=== PATIENT | female | born 1990 | race Caucasian/White ===

== ENCOUNTER 2016-03-04 01:10 | Emergency (ER) | payer MEDICAID ==
--- NOTE | 2016-03-04 02:00 | Emergency Department Report ---
ED General Adult HPI - General Chief complaint: Dyspnea/Respdistress Stated complaint: DANNIELLE/PE Time Seen by Provider: 03/04/16 01:48 Source: patient, EMS (ems notes not available at time of chart dictation) Mode of arrival: Stretcher Limitations: No Limitations - History of Present Illness Initial comments: This is a 25-year-old female, previously unknown to me. She is 3, para 3. History of 3. Recently delivered on February 02. 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 She reports that she was on anticoagulation for 3 months and so the recommended 6 months because she got again. The patient presents to the ER complaining of substernal chest pain and bilateral rib pain, which is sharp, will correct from sleep, and associated with shortness of breath. There is no leg pain. There is no leg swelling. Patient reports her symptoms today are similar to prior episodes of pulmonary embolus. There is no hematemesis, there is no bright red blood per rectum. No irritative or obstructive urinary symptoms, patient has had mild vaginal bleeding since her recent section. -: Sudden Location: chest Quality: aching Consistency: constant Improves with: none Worsens with: cold therapy Associated Symptoms: chest pain, shortness of breath - Related Data Previous Rx's Medication Instructions Recorded Last Taken Type Ferrous Sulfate [Feosol 325 MG tab] 325 mg PO BID #60 tablet 02/03/16 03/03/16 Rx Vit W-Ca,Fe,FA(<1 mg) 1 each PO DAILY #30 tablet 02/03/16 03/03/16 Rx [ Vitamins] Allergies Allergy/AdvReac Type Severity Reaction Status Date / Time sulfamethoxazole Allergy Unknown Hives Verified 03/04/15 17:21 [From Bactrim] trimethoprim [From Bactrim] Allergy Unknown Hives Verified 03/04/15 17:21 ED Review of Systems ROS: Stated complaint: DANNIELLE/PE Other details as noted in HPI Constitutional: denies: fever Eyes: denies: eye discharge ENT: denies: hearing loss Respiratory: see HPI Cardiovascular: chest pain Gastrointestinal: denies: nausea Genitourinary: abnormal menses Musculoskeletal: as per HPI Skin: denies: lesions Neurological: denies: headache ED Past Medical Hx - Past Medical History Previous Medical History?: Yes Hx Hypertension: No Hx Congestive Heart Failure: No Hx Diabetes: No Hx Deep Vein Thrombosis: No Hx Renal Disease: No Hx Sickle Cell Disease: No Hx Seizures: No Hx Asthma: No Hx COPD: No Hx HIV: No - Surgical History Past Surgical History?: Yes Additional Surgical History: c-sectionx3 - Social History Smoking Status: Never Smoker Substance Use Type: None - Medications Home Medications: Home Medications Medication Instructions Recorded Confirmed Last Taken Type Ferrous Sulfate [Feosol 325 MG tab] 325 mg PO BID #60 tablet 02/03/16 03/04/16 03/03/16 Rx Vit W-Ca,Fe,FA(<1 mg) 1 each PO DAILY #30 tablet 02/03/16 03/04/16 Rx [ Vitamins] ED Physical Exam - General Limitations: No Limitations General appearance: alert, in no apparent distress - Head Head exam: Present: atraumatic, normocephalic - Eye Eye exam: Present: normal appearance, EOMI. Absent: nystagmus - ENT ENT exam: Present: normal exam, normal orophraynx, mucous membranes moist - Neck Neck exam: Present: normal inspection, full ROM. Absent: tenderness, meningismus - Respiratory Respiratory exam: Present: normal lung sounds bilaterally. Absent: respiratory distress, wheezes, rales, rhonchi, stridor, chest wall tenderness - Cardiovascular Cardiovascular Exam: Present: regular rate, normal rhythm, normal heart sounds. Absent: bradycardia, tachycardia, irregular rhythm, systolic murmur, diastolic murmur, rubs, gallop - GI/Abdominal GI/Abdominal exam: Present: soft, normal bowel sounds. Absent: distended, tenderness, guarding, rebound, rigid, pulsatile mass - Extremities Exam Extremities exam: Present: normal inspection, full ROM, normal capillary refill. Absent: tenderness, pedal edema, joint swelling, calf tenderness - Back Exam Back exam: Present: normal inspection, full ROM. Absent: tenderness, CVA tenderness (R), CVA tenderness (L), muscle spasm, paraspinal tenderness, vertebral tenderness - Neurological Exam Neurological exam: Present: alert, oriented X3, other (Extraocular movements intact. Tongue midline. No facial droop. Facial sensation intact to light touch in the V1, V2, V3 distribution bilaterally. 5 and 5 strength in 4 extremities.. Sensation is intact to light touch in 4 extremities.). Absent: motor sensory deficit - Psychiatric Psychiatric exam: Present: anxious - Skin Skin exam: Present: warm, dry, intact, normal color. Absent: rash ED Course Vital Signs 03/04/16 03/04/16 03/04/16 01:22 02:00 04:27 Temperature 97.6 F Pulse Rate 73 Respiratory 18 18 Rate Blood Pressure 111/59 [Left] O2 Sat by Pulse 100 Oximetry - Reevaluation(s) Reevaluation #1: 03/04/16 01:59 Differential diagnosis: Acute coronary syndrome, pneumonia, congestive heart failure, pulmonary embolus Assessment and plan: 25-year-old female with history of pulmonary embolus with symptoms that are clinically similar to her prior event. She is afebrile. Her vital signs. No lower extremity pain or swelling. Somewhat anxious. CT scan of the chest, EKG, laboratory studies pending. Reevaluation #2: 03/04/16 05:43 CT scan of the chest negative. Vital signs and laboratory studies not consistent with preeclampsia. The patient feels improved after pain medication. Repeat troponin pending. ED Medical Decision Making - Lab Data Result diagrams: 03/04/16 01:53 03/04/16 01:53 Vital Signs 03/04/16 01:22 Temperature 97.6 F - EKG Data 03/04/16 02:35 normal sinus, 64 bpm, normal intervals, normal axis, consistent with STEMI - Radiology Data Radiology results: report reviewed, image reviewed interpreted by me: X-ray chest negative CT scan of the chest negative for pulmonary embolus Critical care attestation.: If time is entered above; I have spent that time in minutes in the direct care of this critically ill patient, excluding procedure time. ED Disposition Clinical Impression: Chest pain Disposition: DISCHARGED TO HOME OR SELFCARE Is pt being admited?: No Does the pt Need Aspirin: No Condition: Stable Instructions: Chest Pain (ED) Additional Instructions: Laboratory studies were unremarkable, EKG was unremarkable, no evidence of pulmonary embolus on the CT scan of the chest. Rest and avoid heavy lifting. Do not breast feed for the next 36 hours. Follow-up with her primary care doctor or transcription typist within the next 3-[address] Monroe and Glenda are local search engine marketing specialist. Return to the ER right away with new pain, worsened pain, migration of pain, fevers or chills, nausea or vomiting, inability to tolerate liquid feeds. Referrals: PRIMARY CARE, [Primary Care Provider] - 3-5 Days DIOR MONROE MD [Staff Physician] - 3-5 Days SHELLI AJ MD [Staff Physician] - 3-5 Days
[2016-03-04 02:30] LABS: Blood Urea Nitrogen 11 mg/dL (7-17); Carbon Dioxide 23 mmol/L (22-30); Chloride 101.8 mmol/L (98-107); Glucose 103 mg/dL (65-100); Potassium 4.3 mmol/L (3.6-5.0); Sodium 138 mmol/L (137-145)
[2016-03-04 02:32] LABS: Anion Gap 18 mmol/L
[2016-03-04 02:34] LABS: Alanine Aminotransferase 10 units/L (7-56); Albumin 4.1 g/dL (3.9-5); Albumin/Globulin Ratio 1.6 %; Alkaline Phosphatase 105 units/L (35-129); Bilirubin,Total 0.2 mg/dL (0.1-1.2); Total Protein 6.6 g/dL (6.3-8.2)
[2016-03-04 02:36] LABS: Bilirubin,Direct < 0.2 mg/dL (0-0.2)
[2016-03-04] MEDS ORDERED: NACL 0.9% 1000 ML 1,000 ML IV ONE (02:36)
[2016-03-04] MEDS ORDERED: TORADOL IV ONE (02:36)
[2016-03-04 02:46] LABS: Basophils % (Auto) 0.7 % (0.0-1.8); Hematocrit 38.1 % (30.3-42.9); Hemoglobin 12.2 gm/dl (10.1-14.3); Mean Corpuscular HGB Conc 32 % (30-34); Mean Corpuscular Hemoglobin 27 pg (28-32); Mean Corpuscular Volume 84 fl (79-97); Platelet Count 185 K/mm3 (140-440); Red Blood Count 4.52 M/mm3 (3.65-5.03); Red Cell Distribution Width 17.9 % (13.2-15.2); White Blood Count 8.3 K/mm3 (4.5-11.0)
[2016-03-04 02:51] LABS: Bilirubin,Urine NEG (Negative); Blood,Urine MOD (Negative); Ketones,Urine NEG (Negative); Leukocyte Esterase,Urine TR (Negative); Mucus,Urine FEW /HPF; Nitrite,Urine NEG (Negative); Protein,Urine <15 mg/dL mg/dL (Negative); Urobilinogen,Urine < 2.0 mg/dL (<2.0)
[2016-03-04] MEDS ORDERED: NACL ONE (03:22)
--- NOTE | 2016-03-04 04:57 | Cat Scan Report ---
FINAL REPORT PROCEDURE: CT ANGIO CHEST TECHNIQUE: Computerized axial tomographic angiography of the chest and pulmonary arteries was performed after the IV injection of iodinated nonionic contrast. The image data was postprocessed using maximum intensity projection (MIP) and 2-dimensional multiplanar reformatted (MPR) techniques. The examination is specifically tailored to the evaluation of the pulmonary arteries per clinical request. HISTORY: Shortness of breath. History of pulmonary embolus. Attention for pulmonary embolus. Short of breath 786.09, chest pain 786.50 COMPARISON: No prior studies are available for comparison. FINDINGS: Heart and pericardium: Normal. Thoracic aorta: Normal. Pulmonary vasculature: Normal. No pulmonary emboli. Lymph nodes: No enlarged thoracic lymph nodes. Lungs: Normal. Pleural space: No effusion, thickening, or pneumothorax. Musculoskeletal structures: No significant abnormality. Upper abdominal structures: No significant abnormality. Lungs: There is minimal atelectasis in the posterior mid and lower lungs. The lungs are clear otherwise.. Pleural space: No effusion, thickening, or pneumothorax. Musculoskeletal structures: No significant abnormality. Upper abdominal structures: Heterogenous spleen is likely due to contrast flux on this CTA exam. IMPRESSION: 1. There is no CT evidence of pulmonary embolus. 2. There is no CT evidence of thoracic aortic dissection. 3. Mild dependent atelectasis in the posterior mid and lower lungs noted.
[2016-03-04 07:21] VITALS: BP 114/74
--- NOTE | 2016-03-04 08:13 | XRay Report ---
AP CHEST :03/04/16 01:10:00 CLINICAL: Difficulty breathing. COMPARISON:None. FINDINGS: Normal heart and pulmonary vasculature. The lungs are normally expanded and clear. The bones and soft tissues are normal. IMPRESSION: Normal chest.
== END 2016-03-04 07:20 | disposition home or self-care (01) ==
LOC: ED 01:10
DX: R07.2 Precordial pain (principal); Z88.2 Allergy status to sulfonamides; Z88.8 Allergy status to other drugs, medicaments and biological substances
CPT/HCPCS: 36415; 71010; 71275; 80048; 80074; 81001; 81025; 83880; 84484; 85025; 85379; 93005; 93010; 96361; 96374; 99285; J1885; J7030; Q9967

== ENCOUNTER 2016-11-16 16:12 | Emergency (ER) | payer MEDICAID ==
--- NOTE | 2016-11-16 22:50 | Emergency Department Report ---
ED Abdominal Pain HPI - General Chief Complaint: Pain General Stated Complaint: RIB PAIN Time Seen by Provider: 11/16/16 22:47 Source: patient Mode of arrival: Ambulatory Limitations: No Limitations - History of Present Illness MD Complaint: abdominal pain, other (lower rib region) - Related Data Previous Rx's Medication Instructions Recorded Last Taken Type Ferrous Sulfate [Feosol 325 MG tab] 325 mg PO BID #60 tablet 02/03/16 03/03/16 Rx Vit W-Ca,Fe,FA(<1 mg) 1 each PO DAILY #30 tablet 02/03/16 03/03/16 Rx [ Vitamins] Allergies Allergy/AdvReac Type Severity Reaction Status Date / Time sulfamethoxazole Allergy Unknown Hives Verified 03/04/15 17:21 [From Bactrim] trimethoprim [From Bactrim] Allergy Unknown Hives Verified 03/04/15 17:21 ED Review of Systems ROS: Stated complaint: RIB PAIN Other details as noted in HPI ED Past Medical Hx - Past Medical History Hx Hypertension: No Hx Congestive Heart Failure: No Hx Diabetes: No Hx Deep Vein Thrombosis: No Hx Renal Disease: No Hx Sickle Cell Disease: No Hx Seizures: No Hx Asthma: No Hx COPD: No Hx HIV: No - Surgical History Additional Surgical History: c-sectionx3 - Social History Smoking Status: Never Smoker Substance Use Type: None - Medications Home Medications: Home Medications Medication Instructions Recorded Confirmed Last Taken Type Ferrous Sulfate [Feosol 325 MG tab] 325 mg PO BID #60 tablet 02/03/16 03/04/16 03/03/16 Rx Vit W-Ca,Fe,FA(<1 mg) 1 each PO DAILY #30 tablet 02/03/16 03/04/16 Rx [ Vitamins] ED Physical Exam - General Limitations: No Limitations ED Course Vital Signs 11/16/16 17:50 Temperature 98.5 F Pulse Rate 76 Respiratory 16 Rate Blood Pressure 109/58 O2 Sat by Pulse 96 Oximetry Critical care attestation.: If time is entered above; I have spent that time in minutes in the direct care of this critically ill patient, excluding procedure time. ED Disposition Condition: Stable Referrals: PRIMARY CARE, [Primary Care Provider] - 3-5 Days
[2016-11-16] MEDS ORDERED: TORADOL IM ONE (22:52)
--- NOTE | 2016-11-16 22:57 | Emergency Department Report ---
ED General Adult HPI - General Chief complaint: Pain General Stated complaint: RIB PAIN Time Seen by Provider: 11/16/16 22:47 Source: patient Mode of arrival: Ambulatory Limitations: No Limitations - History of Present Illness Initial comments: This is a 25-year-old female nontoxic, well nourished in appearance, no acute signs of distress presents to the ED complaining of upper abdominal pain and lower rib pain region bilaterally 1 year. Patient stated she had a vomiting episode one time last night with food content. Patient denies any nausea, vomiting currently. Patient described pain as aching with level of 8 out of 10. Patient stated this has been going on intermittently for the past year ever since she gave . Patient also stated that she was here in February with rule out of pulmonary embolism which was negative results. The status of the same symptoms that she is having. Patient stated she has been taking tramadol with relief of symptoms and states she is not having anymore tramadol and it has been taking regular Tylenol with no relief. Patient denies any chest pain, shortness of breath, hemoptysis, calf pain, calf tenderness, headache, blurry vision, stiff neck, numbness, tingling, fever or chills. Denies long car rides, recent hospital stays, or recent travels. Patient denies taking oral contraceptives. Patient states allergies to Bactrim. Patient denies past medical history. MD Complaint: abdominal pain -: Gradual, year(s) Location: abdomen Radiation: non-radiation Severity scale (0 -10): 8 Quality: aching Consistency: intermittent Improves with: none Worsens with: none Associated Symptoms: denies other symptoms. denies: confusion, chest pain, cough, diaphoresis, fever/chills, headaches, loss of appetite, malaise, nausea/ vomiting, rash, seizure, shortness of breath, syncope, weakness Treatments Prior to Arrival: none - Related Data Previous Rx's Medication Instructions Recorded Last Taken Type Ferrous Sulfate [Feosol 325 MG tab] 325 mg PO BID #60 tablet 02/03/16 03/03/16 Rx Vit W-Ca,Fe,FA(<1 mg) 1 each PO DAILY #30 tablet 02/03/16 03/03/16 Rx [ Vitamins] traMADol [Ultram] 50 mg PO Q6HR PRN #15 tablet 10/02/17 Unknown Rx Nitrofurantoin Stoddard/M-Cryst 100 mg PO Q12HR #14 capsule 11/17/16 Unknown Rx [Macrobid CAP] Allergies Allergy/AdvReac Type Severity Reaction Status Date / Time sulfamethoxazole Allergy Unknown Hives Verified 03/04/15 17:21 [From Bactrim] trimethoprim [From Bactrim] Allergy Unknown Hives Verified 03/04/15 17:21 ED Review of Systems ROS: Stated complaint: RIB PAIN Other details as noted in HPI Constitutional: denies: chills, fever Eyes: denies: eye pain, eye discharge, vision change ENT: denies: ear pain, throat pain Respiratory: denies: cough, shortness of breath, wheezing Cardiovascular: denies: chest pain, palpitations Endocrine: no symptoms reported Gastrointestinal: abdominal pain. denies: nausea, diarrhea Genitourinary: denies: urgency, dysuria, discharge Musculoskeletal: denies: back pain, joint swelling, arthralgia Skin: denies: rash, lesions Neurological: denies: headache, weakness, paresthesias Psychiatric: denies: anxiety, depression Hematological/Lymphatic: denies: easy bleeding, easy bruising ED Past Medical Hx - Past Medical History Hx Hypertension: No Hx Congestive Heart Failure: No Hx Diabetes: No Hx Deep Vein Thrombosis: No Hx Renal Disease: No Hx Sickle Cell Disease: No Hx Seizures: No Hx Asthma: No Hx COPD: No Hx HIV: No - Surgical History Additional Surgical History: c-sectionx3 - Social History Smoking Status: Never Smoker Substance Use Type: None - Medications Home Medications: Home Medications Medication Instructions Recorded Confirmed Last Taken Type Ferrous Sulfate [Feosol 325 MG tab] 325 mg PO BID #60 tablet 02/03/16 03/04/16 03/03/16 Rx Vit W-Ca,Fe,FA(<1 mg) 1 each PO DAILY #30 tablet 02/03/16 03/04/16 Rx [ Vitamins] traMADol [Ultram] 50 mg PO Q6HR PRN #15 tablet 11/16/16 Unknown Rx Nitrofurantoin Stoddard/M-Cryst 100 mg PO Q12HR #14 capsule 11/17/16 Unknown Rx [Macrobid CAP] ED Physical Exam - General Limitations: No Limitations General appearance: alert, in no apparent distress - Head Head exam: Present: atraumatic, normocephalic, normal inspection - Eye Eye exam: Present: normal appearance, PERRL, EOMI. Absent: scleral icterus, conjunctival injection, nystagmus, periorbital swelling, periorbital tenderness Pupils: Present: normal accommodation - ENT ENT exam: Present: normal exam, normal orophraynx, mucous membranes moist, TM's normal bilaterally, normal external ear exam - Neck Neck exam: Present: normal inspection, full ROM. Absent: tenderness, meningismus, lymphadenopathy, thyromegaly - Respiratory Respiratory exam: Present: normal lung sounds bilaterally. Absent: respiratory distress, wheezes, rales, rhonchi, stridor, chest wall tenderness, accessory muscle use, decreased breath sounds, prolonged expiratory - Cardiovascular Cardiovascular Exam: Present: regular rate, normal rhythm, normal heart sounds. Absent: bradycardia, tachycardia, irregular rhythm, systolic murmur, diastolic murmur, rubs, gallop - GI/Abdominal GI/Abdominal exam: Present: soft, normal bowel sounds. Absent: distended, tenderness, guarding, rebound, rigid, diminished bowel sounds - Expanded GI/Abdominal Exam Expanded GI/Abdominal exam: Absent: psoas sign, obturator sign, heel tap sign, Benjamin's sign, Rovsing's sign, tenderness at [place]bur[place]'s Point, ascites - Rectal Rectal exam: Present: deferred - Extremities Exam Extremities exam: Present: normal inspection, full ROM, normal capillary refill. Absent: tenderness, pedal edema, joint swelling, calf tenderness - Back Exam Back exam: Present: normal inspection, full ROM. Absent: tenderness, CVA tenderness (R), CVA tenderness (L), muscle spasm, paraspinal tenderness, vertebral tenderness, rash noted - Neurological Exam Neurological exam: Present: alert, oriented X3, CN II-XII intact, normal gait, reflexes normal - Psychiatric Psychiatric exam: Present: normal affect, normal mood - Skin Skin exam: Present: warm, dry, intact, normal color. Absent: rash ED Course Vital Signs 11/16/16 17:50 Temperature 98.5 F Pulse Rate 76 Respiratory 16 Rate Blood Pressure 109/58 O2 Sat by Pulse 96 Oximetry - Reevaluation(s) Reevaluation #1: 11/16/16 22:57 Patient is speaking in full sentences with no signs of distress noted. - Consultations Consultation #1: 11/17/16 03:24 Dr. Day has been consulted about patient history, physical exam, and lab/ct findings and agrees to d/c with f/u. ED Medical Decision Making - Lab Data Result diagrams: 11/16/16 22:58 11/16/16 22:58 - Medical Decision Making This is a 25-year-old female that presents with upper abdominal pain and low rib region.. Patient stated she was here on February with similar symptoms to rule out PE because she had a history of PE and was negative. CBC, BMP, UA, lipase amylase have been obtained. Elevated lipase. Elevated d-dimer. CTA and CT abdomen/pelvis has been obtained with contrast with negative findings of any abnormalities. Patient stated she feels much better after medical treatment of Toradol and normal saline. Patient denies any pain. Patient has a history of elevated d-dimer of 11,000 but today it is currently 500. Patient was instructed to follow-up with a primary care doctor in 3-5 days or if symptoms worsen and continue return to emergency room as soon as possible possible. At time time of discharge, the patient does not seem toxic or ill in appearance. No acute signs of distress noted. Patient agrees to discharge treatment plan of care. No further questions noted by the patient. UA indicates patient having UTI. Critical care attestation.: If time is entered above; I have spent that time in minutes in the direct care of this critically ill patient, excluding procedure time. ED Disposition Clinical Impression: Abdominal pain Qualifiers: Abdominal location: unspecified location Qualified Code(s): R10.9 - Unspecified abdominal pain UTI (urinary tract infection) Qualifiers: Urinary tract infection type: site unspecified Hematuria presence: without hematuria Qualified Code(s): N39.0 - Urinary tract infection, site not specified Disposition: DC-01 TO HOME OR SELFCARE Is pt being admited?: No Does the pt Need Aspirin: No Condition: Stable Instructions: Tramadol (By mouth), Acute Abdominal Pain (ED), Urinary Tract Infection in Women (ED) Additional Instructions: Follow-up with a primary care doctor in 3-5 days or if symptoms worsen and continue return to emergency room as soon as possible possible. Prescriptions: Nitrofurantoin Stoddard/M-Cryst [Macrobid CAP] 100 mg PO Q12HR #14 capsule traMADol [Ultram] 50 mg PO Q6HR PRN #15 tablet PRN Reason: Pain Referrals: PRIMARY CAREMD [Primary Care Provider] - 3-5 Days JERO PETERSON MD [Staff Physician] - 3-5 Days [facility] [Outside] - 3-5 Days [facility] [place] [Outside] - 3-5 Days Forms: Work/School Release Form(ED)
[2016-11-16 23:23] LABS: Basophils % (Auto) 0.3 % (0.0-1.8); Eosinophils % (Auto) 1.6 % (0.0-4.3); Hematocrit 40.7 % (30.3-42.9); Hemoglobin 13.9 gm/dl (10.1-14.3); Mean Corpuscular HGB Conc 34 % (30-34); Mean Corpuscular Hemoglobin 31 pg (28-32); Mean Corpuscular Volume 92 fl (79-97); Platelet Count 255 K/mm3 (140-440); Red Blood Count 4.43 M/mm3 (3.65-5.03); White Blood Count 8.4 K/mm3 (4.5-11.0)
[2016-11-16 23:44] LABS: Amylase 122 units/L (27-131); Anion Gap 18 mmol/L; BUN/Creatinine Ratio 20; Blood Urea Nitrogen 12 mg/dL (7-17); Calcium 9.4 mg/dL (8.4-10.2); Carbon Dioxide 26 mmol/L (22-30); Chloride 99.4 mmol/L (98-107); Glucose 83 mg/dL (65-100); Lipase 218 units/L (13-60); Potassium 3.6 mmol/L (3.6-5.0); Sodium 140 mmol/L (137-145)
[2016-11-16] MEDS ORDERED: NACL 0.9% 1000 ML 1,000 ML IV ONE (23:50)
[2016-11-17 00:34] LABS: Albumin 4.4 g/dL (3.9-5); Albumin/Globulin Ratio 1.3 %; Bilirubin,Direct 0.2 mg/dL (0-0.2); Bilirubin,Indirect 0.5 mg/dL; Bilirubin,Total 0.7 mg/dL (0.1-1.2); Total Protein 7.9 g/dL (6.3-8.2)
[2016-11-17] MEDS ORDERED: NACL ONE (00:39)
[2016-11-17 00:58] LABS: Bacteria,Urine 2+ /HPF (Negative); Bilirubin,Urine NEG (Negative); Blood,Urine SM (Negative); Ketones,Urine TR mg/dL (Negative); Leukocyte Esterase,Urine TR (Negative); Mucus,Urine 2+ /HPF; Nitrite,Urine NEG (Negative)
--- NOTE | 2016-11-17 02:29 | Cat Scan Report ---
FINAL REPORT PROCEDURE: CT ANGIO CHEST TECHNIQUE: Computerized axial tomographic angiography of the chest and pulmonary arteries was performed after the IV injection of iodinated nonionic contrast. The image data was postprocessed using maximum intensity projection (MIP) and 2-dimensional multiplanar reformatted (MPR) techniques. The examination is specifically tailored to the evaluation of the pulmonary arteries per clinical request. HISTORY: Short of breath 786.09, chest pain 786.50, elevated d-dimer COMPARISON: No prior studies are available for comparison. FINDINGS: Heart and pericardium: Normal. Thoracic aorta: Normal. Pulmonary vasculature: Normal. No pulmonary emboli. Lymph nodes: No enlarged thoracic lymph nodes. Lungs: Lungs are clear and expanded.. Pleural space: No effusion, thickening, or pneumothorax. Musculoskeletal structures: No significant abnormality. Upper abdominal structures: No significant abnormality. IMPRESSION: There is no pulmonary embolism. There is no thoracic aortic aneurysm or dissection..
--- NOTE | 2016-11-17 02:32 | Cat Scan Report ---
FINAL REPORT PROCEDURE: CT ABDOMEN PELVIS W CON TECHNIQUE: Computerized axial tomography of the abdomen and pelvis was performed after the IV injection of iodinated nonionic contrast. HISTORY: abd pain ( MISCARRIAGE 2 WEEKS AGO) COMPARISON: No prior studies are available for comparison. FINDINGS: Visualized lower thorax: No significant abnormality. Liver: Normal size and attenuation. Spleen: Normal size and attenuation. Gallbladder and biliary system: Normal. Pancreas: Normal. Adrenals: Normal. Kidneys: Normal. GI tract: There is no bowel obstruction, colitis or enteritis. The appendix is normal.. Lymph nodes and mesentery: Normal. Vasculature: Normal. Bladder: Normal. Reproductive organs: Uterus is slightly prominent. There is no mass. Ovaries are unremarkable.. Peritoneum: There is no ascites, free air, abscess or adenopathy.. Musculoskeletal structures: No significant abnormality. Other: None. IMPRESSION: There is no acute intra-abdominal abnormality.
[2016-11-17 04:33] VITALS: BP 100/60
== END 2016-11-17 03:35 | disposition home or self-care (01) ==
LOC: ED 16:12
DX: N39.0 Urinary tract infection, site not specified (principal); R10.10 Upper abdominal pain, unspecified
CPT/HCPCS: 36415; 71275; 74177; 80048; 80074; 81001; 82150; 83690; 84703; 85025; 85379; 96360; 96372; 99284; J1885; J7030; Q9967

== ENCOUNTER 2017-08-09 19:20 | Emergency (ER) | payer OTHER ==
[2017-08-09 20:06] VITALS: BP 112/76
[2017-08-09 21:00] LABS: HCG Qualitative,Urine Negative (Negative)
[2017-08-09 21:03] LABS: Bacteria,Urine 2+ /HPF (Negative); Bilirubin,Urine NEG (Negative); Blood,Urine SM (Negative); Color,Urine Yellow (Yellow); Mucus,Urine FEW /HPF; Protein,Urine <15 mg/dL mg/dL (Negative); Urobilinogen,Urine < 2.0 mg/dL (<2.0)
--- NOTE | 2017-08-09 23:20 | Emergency Department Report ---
ED Female HPI - General Chief complaint: Urogenital-Female Stated complaint: VAG D.C WITH ODOR Time Seen by Provider: 08/09/17 22:44 Source: patient Mode of arrival: Ambulatory Limitations: No Limitations - History of Present Illness Initial comments: 26 y/o female comes in with abnormal vaginal discharge with change blood with vaginal odor. Patient reports is going on for a week. Patient reports that she is sexually active with one partner. She reports her last menstrual period was 07/25/2017. She is currently on Exelon control in her left arm. Patient is allergic to Bactrim. Currently takes no medications on a daily basis. MD Complaint: vaginal discharge, pelvic pain -: days(s) (7) Location: suprapubic Radiation: non-radiating Severity scale (0 -10): 0 Quality: aching Consistency: intermittent Improves with: none Worsens with: none Are you Now?: No Last Menstrual Period: 07/25/17 EDC: 05/01/18 Associated Symptoms: denies: nausea/vomiting, fever/chills, dysuria, hematuria - Related Data Sexually active: Yes (men 1 partner) Previous Rx's Medication Instructions Recorded Last Taken Type Ferrous Sulfate [Feosol 325 MG tab] 325 mg PO BID #60 tablet 02/03/16 03/03/16 Rx Vit Calc,Iron,Folic 1 each PO DAILY #30 tablet 02/03/16 03/03/16 Rx [ Vitamins] traMADol [Ultram] 50 mg PO Q6HR PRN #15 tablet 11/16/16 Unknown Rx Nitrofurantoin [place]/M-Cryst 100 mg PO Q12HR #14 capsule 11/17/16 Unknown Rx [Macrobid CAP] Ibuprofen [Motrin 600 MG tab] 600 mg PO Q8H PRN #15 tablet 08/10/17 Unknown Rx metroNIDAZOLE [Metronidazole] 500 mg PO TID 7 Days #21 tablet 08/10/17 Unknown Rx Allergies Allergy/AdvReac Type Severity Reaction Status Date / Time sulfamethoxazole Allergy Unknown Hives Verified 03/04/15 17:21 [From Bactrim] trimethoprim [From Bactrim] Allergy Unknown Hives Verified 03/04/15 17:21 ED Review of Systems ROS: Stated complaint: VAG D.C WITH ODOR Other details as noted in HPI Constitutional: denies: chills, fever Gastrointestinal: denies: abdominal pain, nausea, diarrhea Genitourinary: discharge (with odor), other (suprapubic) Musculoskeletal: denies: back pain, joint swelling, arthralgia Skin: denies: rash, lesions ED Past Medical Hx - Past Medical History Hx Hypertension: No Hx Congestive Heart Failure: No Hx Diabetes: No Hx Deep Vein Thrombosis: No Hx Renal Disease: No Hx Sickle Cell Disease: No Hx Seizures: No Hx Asthma: No Hx COPD: No Hx HIV: No - Surgical History Additional Surgical History: c-sectionx3 - Social History Smoking Status: Never Smoker Substance Use Type: None - Medications Home Medications: Home Medications Medication Instructions Recorded Confirmed Last Taken Type Ferrous Sulfate [Feosol 325 MG tab] 325 mg PO BID #60 tablet 02/03/16 03/04/16 03/03/16 Rx Vit Calc,Iron,Folic 1 each PO DAILY #30 tablet 02/03/16 03/04/16 Rx [ Vitamins] traMADol [Ultram] 50 mg PO Q6HR PRN #15 tablet 11/16/16 Unknown Rx Nitrofurantoin [place]/M-Cryst 100 mg PO Q12HR #14 capsule 11/17/16 Unknown Rx [Macrobid CAP] Ibuprofen [Motrin 600 MG tab] 600 mg PO Q8H PRN #15 tablet 08/10/17 Unknown Rx metroNIDAZOLE [Metronidazole] 500 mg PO TID 7 Days #21 tablet 08/10/17 Unknown Rx ED Physical Exam - General Limitations: No Limitations General appearance: alert, in no apparent distress - Head Head exam: Present: atraumatic, normocephalic - ENT ENT exam: Present: mucous membranes moist - Respiratory Respiratory exam: Present: normal lung sounds bilaterally. Absent: respiratory distress - Cardiovascular Cardiovascular Exam: Present: regular rate, normal rhythm. Absent: systolic murmur, diastolic murmur, rubs, gallop - GI/Abdominal GI/Abdominal exam: Present: soft, tenderness (mouth suprapubic). Absent: distended - External exam: Present: normal external exam Speculum exam: Present: vaginal discharge, cervical discharge, vaginal bleeding Bi-manual exam: Present: normal bi-manual exam. Absent: cervical motion tendernes, adnexal tenderness, adnexal mass, uterine enlargement, uterine tenderness - Extremities Exam Extremities exam: Present: normal inspection, full ROM - Back Exam Back exam: Present: full ROM - Neurological Exam Neurological exam: Present: alert, oriented X3 - Psychiatric Psychiatric exam: Present: normal affect, normal mood ED Course Vital Signs 08/09/17 20:05 Temperature 98.3 F Pulse Rate 81 Respiratory 18 Rate Blood Pressure 112/76 O2 Sat by Pulse 99 Oximetry ED Medical Decision Making - Medical Decision Making Patient has been evaluated by this provider fast track. Pelvic exam performed GC chlamydia and wet prep obtained sent to the lab. Discussed the patient we will treat her for gonorrhea and chlamydia and wait for the wet prep results to come back. Wet prep results greater than 20% clue cells. We'll treat patient for bacterial vaginosis. Critical care attestation.: If time is entered above; I have spent that time in minutes in the direct care of this critically ill patient, excluding procedure time. ED Disposition Clinical Impression: BV (bacterial vaginosis), Concern about STD in female without diagnosis Disposition: DC-01 TO HOME OR SELFCARE Is pt being admited?: No Does the pt Need Aspirin: No Condition: Stable Instructions: Bacterial Vaginosis (ED) Additional Instructions: Please take antibiotics as prescribed. Do not obtain alcohol beverages while taking this antibiotic. Ibuprofen for pain management as needed. Follow up with her primary care provider. You can bring your ID to medical records obtained her cultures in 3-7 days. Prescriptions: Ibuprofen [Motrin 600 MG tab] 600 mg PO Q8H PRN #15 tablet PRN Reason: Pain metroNIDAZOLE [Metronidazole] 500 mg PO TID 7 Days #21 tablet Referrals: PRIMARY CARE, [Primary Care Provider] - 3-5 Days Forms: STI Treatment and Prevention, Accompanied Note, Work/School Release Form (ED)
== END 2017-08-10 00:10 | disposition home or self-care (01) ==
LOC: ED 19:20
DX: N76.0 Acute vaginitis (principal); B96.89 Other specified bacterial agents as the cause of diseases classified elsewhere; Z88.2 Allergy status to sulfonamides
CPT/HCPCS: 81001; 81025; 87076; 87086; 87186; 87210; 87591

== ENCOUNTER 2020-02-19 10:44 | Emergency (ER) | payer OTHER ==
[2020-02-19 11:38] VITALS: BP 109/64
--- NOTE | 2020-02-19 11:41 | Emergency Department Report ---
ED Rash HPI - HPI Chief Complaint: Skin Rash Stated Complaint: ALERGIC REACTION Time Seen by Provider: 02/19/20 11:09 Duration: 1 Day Location: Lower Extremities Rash Symptoms: Yes Itching, No Facial Swelling, No Tongue/Oral Swelling, No Breathing Difficulties, No Choking Sensation, No Wheezing/Dyspnea, No Peeling, No Blistering, No Fever, No Lightheaded, No Malaise, No Myalgias Severity: mild Other History: This is a 29-year-old female nontoxic well in appearance with no signs of distress presents to the ED with complaint of itching and rash to bilateral legs. Stated it started today and taken benadryl with symptoms better. Patient denies any swelling, pus, or drainage. Denies any angioedema. Patient denies any other symptoms. Denies any fever, chills, headache, nausea, vomiting, chest pain or SOB. Allergies to Bactrim. ED Review of Systems ROS: Stated complaint: ALERGIC REACTION Other details as noted in HPI Comment: All other systems reviewed and negative Constitutional: denies: chills, fever Eyes: denies: eye pain, eye discharge, vision change ENT: denies: ear pain, throat pain Respiratory: denies: cough, shortness of breath, wheezing Cardiovascular: denies: chest pain, palpitations Endocrine: no symptoms reported Gastrointestinal: denies: abdominal pain, nausea, diarrhea Genitourinary: denies: urgency, dysuria, discharge Musculoskeletal: denies: back pain, joint swelling, arthralgia Skin: rash. denies: lesions Neurological: denies: headache, weakness, paresthesias Psychiatric: denies: anxiety, depression Hematological/Lymphatic: denies: easy bleeding, easy bruising ED Past Medical Hx - Past Medical History Previous Medical History?: No Hx Hypertension: No Hx Congestive Heart Failure: No Hx Diabetes: No Hx Deep Vein Thrombosis: No Hx Renal Disease: No Hx Sickle Cell Disease: No Hx Seizures: No Hx Asthma: No Hx COPD: No Hx HIV: No - Surgical History Past Surgical History?: Yes Additional Surgical History: c-sectionx3 - Social History Smoking Status: Never Smoker Substance Use Type: None - Medications Home Medications: Home Medications Medication Instructions Recorded Confirmed Last Taken Type Ferrous Sulfate [Feosol 325 MG tab] 325 mg PO BID #60 tablet 02/03/16 03/04/16 03/03/16 Rx Vit Calc,Iron,Folic 1 each PO DAILY #30 tablet 02/03/16 03/04/16 03/03/16 Rx [ Vitamins] traMADoL [Ultram] 50 mg PO Q6HR PRN #15 tablet 11/16/16 Unknown Rx Nitrofurantoin [place]/M-Cryst 100 mg PO Q12HR #14 capsule 11/17/16 Unknown Rx [Macrobid CAP] Ibuprofen [Motrin 600 MG tab] 600 mg PO Q8H PRN #15 tablet 08/10/17 Unknown Rx metroNIDAZOLE [Metronidazole] 500 mg PO TID 7 Days #21 tablet 08/10/17 Unknown Rx Prednisone [predniSONE 5 mg (6-Day 5 mg PO .TAPER #1 tab.ds.pk 02/19/20 Unknown Rx Pack, 21 Tabs)] diphenhydrAMINE [Benadryl CAP] 25 mg PO Q6HR PRN #12 capsule 02/19/20 Unknown Rx Rash Exam - Exam General: Vital signs noted. No distress. Alert and acting appropriately. HEENT: No Periorbital Edema, No Conjuctival Injection, No Chemosis, No Perioral Edema, No Tongue Edema, No Uvular Edema, No Compromised Airway, No Drooling Lungs: Yes Good Air Exchange (Normal Breath Sounds), No Wheezes, No Ronchi, No Stridor, No Cough, No Labored Respirations, No Retractions, No Use of Accessory Muscles, No Other Abnormal Lung Sounds Heart: Yes Regular, No Murmur Skin: Yes Other, No Urticarial Rash, No Maculopapular Rash, No Morbilliform rash, No Bulla(e), No Excoriations, No Weeping, No Tenderness, No Erythema, No Edema, No Encrustations Other: Positive: Abdomen Normal, Neurologic Normal, Musculoskeletal Normal ED Course Vital Signs 02/19/20 11:03 Temperature 97.9 F Pulse Rate 70 Respiratory 18 Rate Blood Pressure 109/64 O2 Sat by Pulse 98 Oximetry - Reevaluation(s) Reevaluation #1: 02/19/20 11:42 Patient is speaking in full sentences with no signs of distress noted. ED Medical Decision Making - Medical Decision Making VSS. Patient is stable and was examined by me. Patient does not have any angioedema. Patient will be discharged with Prednisone and Benadryl. Patient was instructed to Follow-up with a primary care doctor in 3-5 days or if symptoms worsen and continue return to emergency room as soon as possible. At time of discharge, the patient does not seem toxic or ill in appearance. No acute signs of distress noted. Patient agrees to discharge treatment plan of care. No further questions noted by the patient. Critical care attestation.: If time is entered above; I have spent that time in minutes in the direct care of this critically ill patient, excluding procedure time. ED Disposition Clinical Impression: Allergic reaction Disposition: DC- TO HOME OR SELFCARE Is pt being admited?: No Does the pt Need Aspirin: No Condition: Stable Additional Instructions: Follow-up with a primary care doctor in 3-5 days or if symptoms worsen and continue return to emergency room as soon as possible. Prescriptions: diphenhydrAMINE [Benadryl CAP] 25 mg PO Q6HR PRN #12 capsule PRN Reason: Itching Prednisone [predniSONE 5 mg (6-Day Pack, 21 Tabs)] 5 mg PO .TAPER #1 tab.ds.pk Referrals: PRIMARY MD JESS [Primary Care Provider] - 3-5 Days CRISTINO SALTER MD [Staff Physician] - 3-5 Days Time of Disposition: 11:45
== END 2020-02-19 12:38 | disposition home or self-care (01) ==
LOC: ED 10:44
DX: T78.40XA Allergy, unspecified, initial encounter (principal); Z88.2 Allergy status to sulfonamides; Z88.8 Allergy status to other drugs, medicaments and biological substances; Z98.890 Other specified postprocedural states; Z79.899 Other long term (current) drug therapy; X58.XXXA Exposure to other specified factors, initial encounter
CPT/HCPCS: 99282

== ENCOUNTER 2020-02-27 09:20 | Emergency (ER) | payer MEDICAID, OTHER ==
[2020-02-27 09:30] VITALS: BP 106/44
[2020-02-27 10:13] LABS: Bilirubin,Urine NEG (Negative); Blood,Urine MOD (Negative); Color,Urine Yellow (Yellow); Protein,Urine <15 mg/dL mg/dL (Negative); Urobilinogen,Urine < 2.0 mg/dL (<2.0)
--- NOTE | 2020-02-27 10:50 | Event Note ---
ED Screening Note Date of service: 02/27/20 Time: 10:48 ED Screening Note: 29-year-old female presents to the emergency room for 3-day history of dysuria. Patient denies any fever chills no nausea no vomiting mild lower left abdominal pain that sharp and intermittent and worse when she urinates. Patient states she started her menstrual period on 02/25/2020 she is 3 para 3. Has an allergy to Bactrim currently takes no medications. This initial assessment/diagnostic orders/clinical plan/treatment(s) is/are subject to change based on patients health status, clinical progression and re- assessment by fellow clinical providers in the ED. Further treatment and workup at subsequent clinical providers discretion. Patient/guardian urged not to elope from the ED as their condition may be serious if not clinically assessed and managed. Initial orders include:
--- NOTE | 2020-02-27 11:27 | Emergency Department Report ---
ED Female HPI - General Chief complaint: Abdominal Pain Stated complaint: BURNING URINE Source: patient Mode of arrival: Ambulatory Limitations: No Limitations - History of Present Illness Initial comments: 29-year-old female presents to the emergency room for 3-day history of dysuria. Patient denies any fever chills no nausea no vomiting mild lower left abdominal pain that sharp and intermittent and worse when she urinates. Patient states she started her menstrual period on 02/25/2020 she is 3 para 3. Has an allergy to Bactrim currently takes no medications. Onset/Timin -: days(s) Location: suprapubic Severity scale (0 -10): 5 Quality: burning Consistency: constant Improves with: none Worsens with: urination Are you Now?: No Last Menstrual Period: 02/25/20 EDC: 12/01/20 Associated Symptoms: vaginal bleeding, abdominal pain, dysuria. denies: nausea/vomiting, fever/chills - Related Data Sexually active: Yes : 3 Para: 3 Previous Rx's Medication Instructions Recorded Last Taken Type Ferrous Sulfate [Feosol 325 MG tab] 325 mg PO BID #60 tablet 02/03/16 03/03/16 Rx Vit Calc,Iron,Folic 1 each PO DAILY #30 tablet 02/03/16 03/03/16 Rx [ Vitamins] traMADoL [Ultram] 50 mg PO Q6HR PRN #15 tablet 11/16/16 Unknown Rx Ibuprofen [Motrin 600 MG tab] 600 mg PO Q8H PRN #15 tablet 08/10/17 Unknown Rx metroNIDAZOLE [Metronidazole] 500 mg PO TID 7 Days #21 tablet 08/10/17 Unknown Rx Prednisone [predniSONE 5 mg (6-Day 5 mg PO .TAPER #1 tab.ds.pk 02/19/20 Unknown Rx Pack, 21 Tabs)] diphenhydrAMINE [Benadryl CAP] 25 mg PO Q6HR PRN #12 capsule 02/19/20 Unknown Rx Nitrofurantoin [place]/M-Cryst 100 mg PO Q12HR #14 capsule 02/27/20 Unknown Rx [Macrobid CAP] Allergies Allergy/AdvReac Type Severity Reaction Status Date / Time sulfamethoxazole Allergy Unknown Hives Verified 03/04/15 17:21 [From Bactrim] trimethoprim [From Bactrim] Allergy Unknown Hives Verified 03/04/15 17:21 ED Review of Systems ROS: Stated complaint: BURNING URINE Other details as noted in HPI Comment: All other systems reviewed and negative ED Past Medical Hx - Past Medical History Previous Medical History?: No Hx Hypertension: No Hx Congestive Heart Failure: No Hx Diabetes: No Hx Deep Vein Thrombosis: No Hx Renal Disease: No Hx Sickle Cell Disease: No Hx Seizures: No Hx Asthma: No Hx COPD: No Hx HIV: No - Surgical History Past Surgical History?: Yes Additional Surgical History: c-sectionx3 - Social History Smoking Status: Never Smoker Substance Use Type: None - Medications Home Medications: Home Medications Medication Instructions Recorded Confirmed Last Taken Type Ferrous Sulfate [Feosol 325 MG tab] 325 mg PO BID #60 tablet 02/03/16 03/04/16 03/03/16 Rx Vit Calc,Iron,Folic 1 each PO DAILY #30 tablet 02/03/16 03/04/16 03/03/16 Rx [ Vitamins] traMADoL [Ultram] 50 mg PO Q6HR PRN #15 tablet 11/16/16 Unknown Rx Ibuprofen [Motrin 600 MG tab] 600 mg PO Q8H PRN #15 tablet 08/10/17 Unknown Rx metroNIDAZOLE [Metronidazole] 500 mg PO TID 7 Days #21 tablet 08/10/17 Unknown Rx Prednisone [predniSONE 5 mg (6-Day 5 mg PO .TAPER #1 tab.ds.pk 02/19/20 Unknown Rx Pack, 21 Tabs)] diphenhydrAMINE [Benadryl CAP] 25 mg PO Q6HR PRN #12 capsule 02/19/20 Unknown Rx Nitrofurantoin [place]/M-Cryst 100 mg PO Q12HR #14 capsule 02/27/20 Unknown Rx [Macrobid CAP] ED Physical Exam - General Limitations: No Limitations General appearance: alert, in no apparent distress - Head Head exam: Present: atraumatic, normocephalic - Eye Eye exam: Present: normal appearance - ENT ENT exam: Present: mucous membranes moist - Neck Neck exam: Present: normal inspection, full ROM - Respiratory Respiratory exam: Absent: chest wall tenderness - Cardiovascular Cardiovascular Exam: Present: regular rate, normal rhythm. Absent: systolic murmur, diastolic murmur, rubs, gallop - GI/Abdominal GI/Abdominal exam: Present: soft, tenderness ( LLQ). Absent: distended - Extremities Exam Extremities exam: Present: normal inspection, full ROM - Back Exam Back exam: Present: normal inspection - Neurological Exam Neurological exam: Present: alert, oriented X3, normal gait - Psychiatric Psychiatric exam: Present: normal affect, normal mood - Skin Skin exam: Present: warm, dry, intact, normal color. Absent: rash ED Course Vital Signs 02/27/20 09:29 Temperature 97.1 F L Pulse Rate 77 Respiratory 18 Rate Blood Pressure 106/44 O2 Sat by Pulse 99 Oximetry ED Medical Decision Making - Medical Decision Making 29-year-old female presents to the emergency room for 3-day history of dysuria. Patient denies any fever chills no nausea no vomiting mild lower left abdominal pain that sharp and intermittent and worse when she urinates. Patient states she started her menstrual period on 02/25/2020 she is 3 para 3. Has an allergy to Bactrim currently takes no medications. Urinalysis shows that she has a urinary tract infection will treat with Macrobid 100 mg p.o. every 12 for 10 days. She can take ibuprofen or Tylenol for pain management. Increase her water intake advance her diet as tolerated. Follow-up with her primary care provider if symptoms persist. Critical care attestation.: If time is entered above; I have spent that time in minutes in the direct care of this critically ill patient, excluding procedure time. ED Disposition Clinical Impression: UTI (urinary tract infection) Disposition: DC-01 TO HOME OR SELFCARE Is pt being admited?: No Does the pt Need Aspirin: No Condition: Stable Instructions: Abdominal Pain (ED), Urinary Tract Infection, Adult, [id number] Additional Instructions: Please complete antibiotics as prescribed. Increase your fluid intake. Prescriptions: Nitrofurantoin [place]/M-Cryst [Macrobid CAP] 100 mg PO Q12HR #14 capsule Referrals: [facility] [Provider Group] - 3-5 Days [facility] [Provider Group] - 3-5 Days Forms: Work/School Release Form(ED)
== END 2020-02-27 12:47 | disposition home or self-care (01) ==
LOC: ED 09:20
DX: N39.0 Urinary tract infection, site not specified (principal); Z79.899 Other long term (current) drug therapy; Z88.8 Allergy status to other drugs, medicaments and biological substances
CPT/HCPCS: 36415; 81001; 84703; 87086; 99283